=== PATIENT | female | born 1980 | race Two or more races ===

== ENCOUNTER 2017-09-08 10:28 | Day surgery (SDC) | payer BC ==
[2017-09-08] MEDS ORDERED: FENTAnyl 50 MCG/ML VIAL (11:56)
[2017-09-08] MEDS ORDERED: MIDAZOLAM 1 MG/ML 2 ML INJ ×2 (11:56)
== END 2017-09-08 13:45 | disposition home or self-care (01) ==
LOC: GIL 10:28
DX: R19.4 Change in bowel habit (principal); K64.8 Other hemorrhoids
CPT/HCPCS: 45378; 84703